=== PATIENT | male | born 1965 | race Two or more races ===

== ENCOUNTER 2017-08-11 23:45 | Emergency (ER) | payer SELFPAY ==
[~2017-08-11] VITALS: Ht 182.9 cm; Wt 113.4 kg
--- NOTE | 2017-08-12 00:34 | NUR ---
Patient discharged with v/s stable. In custody with police. All questions addressed prior to discharge.
== END 2017-08-12 00:34 ==
LOC: MED 23:45
DX: Z02.89 Encounter for other administrative examinations (principal); V89.2XXA Person injured in unspecified motor-vehicle accident, traffic, initial encounter; Y93.89 Activity, other specified; Y92.488 Other paved roadways as the place of occurrence of the external cause; Y99.8 Other external cause status
CPT/HCPCS: 99283